=== PATIENT | male | born 1960 | race Caucasian/White ===

== ENCOUNTER 2020-03-01 20:10 | Emergency (ER) | payer BC ==
[2020-03-01] MEDS ORDERED: DOXYCYCLINE 100 MG TABLET PO STA (20:41)
--- NOTE | 2020-03-01 20:42 | ED Physician Documentation ---
History of Present Illness - Stated complaint Stated Complaint: SINUS PX - Chief complaint Chief Complaint: Heent - History obtained from History obtained from: Patient - History of Present Illness Timing: How many weeks ago (2) Pain level max: 2 Pain level now: 1 - Additonal information Additional information: 59-year-old male states that he has had sinus congestion and pressure for the past 2 weeks. States recently his mucus has turned brown in color. He has been using pseudoephedrine and benadryl. He is also utilizing Flonase. No fevers. No chills. Nothing makes it worse. Better with Benadryl and Sudafed Review of Systems Constitutional: denies: Fever, Chills Ears: denies: Ear pain Nose: reports: Congestion, Sinus pressure / pain. denies: Rhinorrhea / runny nose Throat: denies: Sore throat Cardiac: denies: Chest pain / pressure Respiratory: denies: Cough, Hemoptysis, Wheezing GI: denies: Vomiting, Diarrhea Skin: denies: Rash Musculoskeletal: denies: Neck pain, Back pain Neurologic: denies: Headache PD PAST MEDICAL HISTORY - Past Medical History Past Medical History: Yes HEENT: Chronic sinusitis - Past Surgical History Past Surgical History: Yes HEENT: Other - Present Medications Home Medications: Ambulatory Orders Medication Instructions Recorded Confirmed Cetirizine HCl/Pseudoephedrine 1 each PO BID PRN #30 tab.er.12h 03/01/20 [Zyrtec-D Tablet] Doxycycline Hyclate 100 mg PO BID #14 capsule 03/01/20 - Allergies Allergies/Adverse Reactions: Allergies Allergy/AdvReac Type Severity Reaction Status Date / Time amoxicillin AdvReac Rash Verified 03/01/20 20:15 - Social History Does the pt smoke?: No Smoking Status: Never smoker Does the pt drink ETOH?: Yes Does the pt have substance abuse?: No - Immunizations Immunizations are current?: Yes - POLST Patient has POLST: No PD ED PE NORMAL - Vitals Vital signs reviewed: Yes - General General: Alert and oriented X 3, No acute distress, Well developed/nourished - HEENT HEENT: PERRL, Ears normal, Moist mucous membranes, Pharynx benign, Other (Mild tenderness over the bilateral maxillary and frontal sinuses) - Neck Neck: Supple, no meningeal sign, No adenopathy - Cardiac Cardiac: RRR, Strong equal pulses - Respiratory Respiratory: No respiratory distress, Clear bilaterally - Abdomen Abdomen: Soft, Non tender, Non distended - Derm Derm: Warm and dry, No rash - Neuro Neuro: Alert and oriented X 3 - Psych Psych: Normal mood, Normal affect Results - Vitals Vitals: Vital Signs - 24 hr 03/01/20 03/01/20 20:15 20:45 Temperature 36.5 C Heart Rate 95 87 Respiratory 16 18 Rate Blood Pressure 177/102 H 161/99 H O2 Saturation 96 95 Oxygen O2 Source Room air PD MEDICAL DECISION MAKING - ED course Complexity details: considered differential, d/w patient ED course: Patient with what appears to be acute bacterial rhinosinusitis. Has been ongoing for several weeks. We will trial him on antibiotics and see if this improves his symptoms. We will also continue him on antihistamines and decongestants. Patient is well-appearing, nontoxic. Afebrile.Mild nasal turbinate swelling on exam. Patient counseled regarding signs and symptoms for which I believe and urgent re-evaluation would be necessary. Patient with good understanding of and agreement to plan and is comfortable going home at this time This document was made in part using voice recognition software. While efforts are made to proofread this document, sound alike and grammatical errors may occur. Departure - Departure Disposition: 01 Home, Self Care Clinical Impression: Acute rhinosinusitis Condition: Good Instructions: ED Sinusitis Abx Tx Follow-Up: Mg Brown MD [Primary Care Provider] - Within 1 week Prescriptions: Doxycycline Hyclate 100 mg PO BID #14 capsule Cetirizine HCl/Pseudoephedrine [Zyrtec-D Tablet] 1 each PO BID PRN #30 tab.er.12h PRN Reason: nasal congestion Comments: Take all antibiotics until gone. Return if you worsen. Follow-up with your doctor in 1 week if not better. Discharge Date/Time: 03/01/20 20:57
[2020-03-01 20:46] VITALS: BP 161/99
== END 2020-03-01 20:57 | disposition home or self-care (01) ==
LOC: ED 20:10
DX: J01.80 Other acute sinusitis (principal)
CPT/HCPCS: 99282; 99284; A9270